=== PATIENT | male | born 1965 | race Caucasian/White ===

== ENCOUNTER 2018-07-08 03:01 | Emergency (ER) | payer OTHER ==
[2018-07-08 03:06] VITALS: BP 144/87
--- NOTE | 2018-07-08 03:38 | EDPHY ---
H & P Stated Complaint: Pinched nerve in neck Time Seen by Provider: 07/08/18 03:08 HPI/ROS: Chief Complaint: Back pain HPI: 52-year-old male complaining of pain in his right back. Patient states he has a history of a pinched nerve. He had an international flight last week and stents coming home has had worsening pain in his right shoulder which radiates down his arm into his neck. Symptoms are similar to prior episodes. He has an appoint with Dr. Kennedy today but could not tolerate the pain. He has been taking acetaminophen without relief. He has a history of ulcerative colitis and cannot take nonsteroidals. Denies any new numbness or weakness. No fevers or chills. He is not dropping any objects. No headache. ROS: 10 systems were reviewed and were negative except those elements noted in the HPI. PMH: Ulcerative colitis Social History: No smoking, occasional alcohol, occasional marijuana Family History: non-contributory Physical Exam: Gen: Awake, Alert, No Distress HEENT: Nose: no rhinorrhea Eyes: PERRLA, EOMI Mouth: Moist mucosa Neck: Supple, no JVD Chest: nontender, lungs clear to auscultation Heart: S1, S2 normal, no murmur Abd: Soft, non-tender, no guarding Back: no CVA tenderness, no midline tenderness Ext: no edema, non-tender Skin: no rash Neuro: CN II-XII intact, Sensation grossly intact, Strength 5/5 in bilateral upper and lower extremities, he is completely neurologically intact in all dermatomes of bilateral upper extremities. Ca - Personal History Current Tetanus/Diphtheria Vaccine: Yes Current Tetanus Diphtheria and Acellular Pertussis (TDAP): Yes - Medical/Surgical History Hx Asthma: No Hx Chronic Respiratory Disease: No Hx Diabetes: No Hx Cardiac Disease: No Hx Renal Disease: No Hx Cirrhosis: No Hx Alcoholism: No Hx HIV/AIDS: No Hx Splenectomy or Spleen Trauma: No Other PMH: ulcerative colitis - Social History Smoking Status: Never smoked Constitutional: Initial Vital Signs Temperature (C) 36.7 C 07/08/18 03:04 Heart Rate 87 07/08/18 03:04 Respiratory Rate 16 07/08/18 03:04 Blood Pressure 144/87 H 07/08/18 03:04 O2 Sat (%) 97 07/08/18 03:04 O2 Delivery Mode Room Air Allergies/Adverse Reactions: Sulfa (Sulfonamide Antibiotics) Allergy (Verified 07/08/18 03:03) Home Medications: Medication Instructions Recorded Hydromorphone HCl 2 mg PO Q6 PRN #10 tablet 07/08/18 Lialda 07/08/18 Medical Decision Making ED Course/Re-evaluation: 52-year-old male complaining of radicular pain in his right upper extremity. He is completely neurologically intact. He has not have any reproducible muscle pain or tenderness. Will treat him with a short course of narcotic analgesia. He has an appointment to follow up with his doctor later today. He will likely need an MRI as an outpatient. No indications for emergent imaging at this time. Departure - Departure Disposition: Home, Routine, Self-Care Clinical Impression: Cervical radiculopathy Condition: Good Instructions: Cervical Radiculopathy (ED), Neck Pain (ED) Additional Instructions: You may take the Dilaudid, 2 mg every 6 hr as needed for pain. Follow up with primary care doctor as scheduled later today. Return to the emergency department for worsening pain, new numbness or weakness , fevers, or any other concerns. Referrals: NONE *PRIMARY CARE P,. [Primary Care Provider] - As per Instructions Prescriptions: Hydromorphone HCl 2 mg PO Q6 PRN #10 tablet PRN Reason: Pain, Severe
[2018-07-08] MEDS ORDERED: HYDROmorphONE/DILAUDID 2 MG TAB PO ONE (03:40)
== END 2018-07-08 03:54 | disposition home or self-care (01) ==
DX: M54.12 Radiculopathy, cervical region (principal); K51.90 Ulcerative colitis, unspecified, without complications; Z88.2 Allergy status to sulfonamides